=== PATIENT | female | born 1945 | race Caucasian/White ===

== ENCOUNTER → 2016-05-20 | Outpatient (RCR) ==
--- NOTE | 2016-05-20 11:32 | RS.OPPTEV2 ---
Date of Note: 05/20/16 Visit #: 1 Date of Evaluation: 05/20/16 Payer Source: MEDICARE Date of Onset/Injury/Change in Status: 01/19/16 Procedure Performed: Kyphoplasty Date of Procedure: 03/12/16 (2nd kyphopasty was in March but date unknown) Treatment Diagnosis: Thoracic back pain History of Condition/Mechanism of Injury:: Patient has had thoracic compression fxs which she had 2 kyphoplasty surgeries one in February and the 2nd in March. The 1st surgery was very helpful and the 2nd was not as successful. She is unsure of how these fxs occurred but states that her bones are very brittle. She was given no precautions. She does have hx of lung Ca which is in remission after chemo and radiation. Prior Level of Function.....Patient was independent with: ADL's, Self Care, Work /Vocation, Caregiving, Ambulation/Mobility, Community Integration/Access Functional Limitations: Reaching, Pushing, Pulling, Lifting, Carrying, Bending, Community Access/Integration Current Subjective/complaints:: Patient states she has no pain when she is still but when she moves the pain becomes so severe it takes her breath away. If she lays down it will go away within an hour. She is also going through a great deal of emotional difficulty with the of her significant other in February which she cared for for 5 yrs and the loss of several family members from a plane crash ~ a yr ago. Patient was tearful today when discussing this during evaluation. Treatment Side (optional): Left Medical History Medical History: Hypertension, COPD, Arthritis, Cancer Medical History Comments:: Irregular cardiac rhythm, lung Ca Surgical History: Thoracic Spine, Hysterectomy Smoking Status: Former smoker Pain Assessment - Pain Description Pain Location: Upper thoracic pain Pain Description: Burning, Sharp Pain Description: Pain is only with movement Current Pain Intensity: 0/10 Worst Pain Intensity: takes her breath away Functional Outcome Measure Oswestry LBP: 22 (44% diability) - G Codes & Severity Modifier G Codes & Modifier: Changing, & Maintaining Body Position. Eval: CK. Goal: CJ Source of G Code score: Oswestry Observation - Observation Posture: Forward Head, Rounded Shoulders, Increased Thoracic Kyphosis General Muscle Strength: Due to pain with movement no MMT was performed but she was able to move UEs through full ROM w/o difficulty. Postural weakness was evident by postural deficits. Shoulder ROM: Bilaterally WFL's Palpation Palpation Findings: Tenderness, Trigger Point (Left thoracic intercostal area upper to mid thoracic area.) Sensation - Sensation Sensation Description: Within Normal Limits Interventions - Exercise/Activities/Manual Therapy Exercises/Activities: scapular pinches and shoulder shrugs 2 sets 5 reps for postural correction. Increased pain with improved posture. Total minutes of Exercise: 5 Manual Therapy: Myofascial and tender point release of right mid thoracic paraspinals. Total minutes of Manual Therapy: 20 HOME EXERCISE PROGRAM: See above exercises. - Charges Total Direct Minutes: 25 Total Treatment Time: 60 Procedures billed for this date of service:: PT Duarte (Medium) & manual therapy Assessment Assessment: Debilitating thoracic pain that limits all functional activities. Patient Education: Education of diagnosis, Body/Joint mechanics, Home Exercise Program, Home Safety, Activity Modification, Education of Plan of Care Rehab Potential: Good Short Term Goals Goal #1: Thoracic pain at worst has decreased to moderate. Goal to be met by: 06/06/16 Goal #2: Patient tolerates minimal upper body activity with min increase in pain Goal to be met by: 06/06/16 Goal #3: Independent with basic HEP. Goal to be met by: 06/06/16 Heel Trimmer Goals Goal #1: Only minimal c/o thoracic pain at worst. Goal to be met by: 06/27/16 Goal #2: Oswestry score decreased to 12. Goal to be met by: 06/27/16 Goal #3: Independent in HEP to maintain DC status. Goal to be met by: 06/27/16 Plan - Treatment to be Provided Procedures: Therapeutic Exercises, Therapeutic Activity, Manual Therapy, Massage , Patient Education Modalities: Cryotherapy, Hot Packs - Treatment Plan Frequency: 2 - 3 X/week Duration: 6 weeks ORDER # VISITS AND/OR THROUGH DATE: 06/27/2016 - Treatment Code (1) Thoracic back pain Qualifiers: Chronicity: acute Back pain laterality: left Qualified Description : Acute left-sided thoracic back pain Qualifier Code(s): (M54.6) Pain in thoracic spine
== END ==
PROVIDERS: ATTEND Nurse Practitioner
DX: M54.6 Pain in thoracic spine (principal)

== ENCOUNTER 2016-06-13 09:15 | Outpatient (RCR) ==
--- NOTE | 2016-05-22 10:39 | RS.OPPTDN ---
Subjective Date of Note: 05/22/16 Visit #: 2 Date of Evaluation: 05/20/16 Payer Source: MEDICARE Treatment Diagnosis: Thoracic back pain Current Subjective/complaints:: Patient reports she was already better after the evaluation and manual therapy performed on the 1st visit. She was able to stand and finishing cooking where she had not been able to prior to tx due to severe sharp thoracic pain. Pain Assessment - Pain Description Pain Location: Upper thoracic pain Pain Description: Pain is only with movement Current Pain Intensity: 0/10 Interventions - Exercise/Activities/Manual Therapy Exercises/Activities: scapular pinches and shoulder shrugs 2 sets 7 reps for postural correction. Increased pain with improved posture. She report compliance with performance of these since last visit. She requires min-mod assist for proper technique. Manual Therapy: Myofascial mobilization and stretching as well as trigger/ tennder point release techniques of the left mid thoracic paraspinals. Left scapular moblizatoin also performed for thoracoscapular moblitiy and to facilitate normal shoulder and thoracic relationship of movement. No pain with this technique. HOME EXERCISE PROGRAM: See above exercises. - Charges Total Direct Minutes: 45 Total Treatment Time: 45 Procedures billed for this date of service:: manual therapy X 2 & ther ex Assessment: Decreased left thoracic pain with patient tolerating today's treatment well also. Patient Education: Home Exercise Program, Activity Modification (Patient instructed to continue to avoid splitting and chopping wood which is an activity she loved and did regularly prior to compress fxs. She verbalized understanding and compliance.) Short Term Goals Goal #1: Thoracic pain at worst has decreased to moderate. Goal to be met by: 06/06/16 Goal #2: Patient tolerates minimal upper body activity with min increase in pain Goal to be met by: 06/06/16 Goal #3: Independent with basic HEP. Goal to be met by: 06/06/16 Prison Goals Goal #1: Only minimal c/o thoracic pain at worst. Goal to be met by: 06/27/16 Goal #2: Oswestry score decreased to 12. Goal to be met by: 06/27/16 Goal #3: Independent in HEP to maintain DC status. Goal to be met by: 06/27/16 Plan PLAN OF CARE EXPIRES ON:: 06/27/16 ORDER # VISITS AND/OR THROUGH DATE: 06/27/2016 PLAN: Continue Plan of Care
--- NOTE | 2016-05-26 09:39 | RS.OPPTDN ---
Subjective Date of Note: 05/26/16 Visit #: 3 Date of Evaluation: 05/20/16 Payer Source: MEDICARE Treatment Diagnosis: Thoracic back pain Current Subjective/complaints:: Patient states that she has felt better after her last appointment, but she had to do a lot of "running around" over the weekend and has had increased pain. Says she has pain to the L mid back more than R. She says she uses heat at home for pain relief, but denies wanting any today. She requests to exercise only. Pain Assessment - Pain Description Pain Location: Upper thoracic pain Pain Description: Pain is only with movement Current Pain Intensity: "more today" Interventions - Exercise/Activities/Manual Therapy Exercises/Activities: Patient receives passive stretching: SKTC, Piriformis, Trunk rotation, HS bilaterally x 3. Patient attempts pelvic tilts, bridging x 5 , alternate LE lift, alternate LE/UE lift with 1# wand x 10. Sitting: scap adduction, shoulder shrugs x 10. Standing: wall angels, bilateral shoulder flexion with 1# wand with assistance for proper shoulder girdle motion, education on diagnosis, posture. Total minutes of Exercise: 27 Manual Therapy: Trigger point release to the L mid scapula prior and after therex. Total minutes of Manual Therapy: 6 HOME EXERCISE PROGRAM: See above exercises. - Charges Total Direct Minutes: 33 Total Treatment Time: 33 Procedures billed for this date of service:: ex2 Assessment: Patient with elevated pain today to L mid to low back compared to R. Patient experienced mild relief with treatment today. She had difficulty performing pelvic tilts and does show poor mechanics and needed assistance/cues for proper thoracic/scapular exercises. Patient Education: Education of diagnosis, Body/Joint mechanics, Home Exercise Program, Home Safety, Activity Modification, Education of Plan of Care Short Term Goals Goal #1: Thoracic pain at worst has decreased to moderate. Goal to be met by: 06/06/16 Progress towards Goal:: Progressing Goal #2: Patient tolerates minimal upper body activity with min increase in pain Goal to be met by: 06/06/16 Progress towards Goal:: Progressing Goal #3: Independent with basic HEP. Goal to be met by: 06/06/16 Provider Scribe Goals Goal #1: Only minimal c/o thoracic pain at worst. Goal to be met by: 06/27/16 Goal #2: Oswestry score decreased to 12. Goal to be met by: 06/27/16 Goal #3: Independent in HEP to maintain DC status. Goal to be met by: 06/27/16 Plan PLAN OF CARE EXPIRES ON:: 06/27/16 ORDER # VISITS AND/OR THROUGH DATE: 06/27/2016 PLAN: Progress Exercises
--- NOTE | 2016-05-29 10:00 | RS.OPPTDN ---
Subjective Date of Note: 05/29/16 Visit #: 4 Date of Evaluation: 05/20/16 Payer Source: MEDICARE Treatment Diagnosis: Thoracic back pain Current Subjective/complaints:: Patient reports manual therapy to the left shoulder blade area seems to help more than anything. Reports discomfort into left upper traps during and after exercises today in department. Reports the position required for washing dishes or cooking increases her pain. Pain Assessment - Pain Description Pain Location: Upper thoracic pain Pain Description: Pain is only with movement Current Pain Intensity: about the same, no increased pain Interventions - Exercise/Activities/Manual Therapy Exercises/Activities: Sitting: scap adduction, shoulder shrugs x 10. Standing : attempted wall angels, but patient reporting pain with attempts to get into position,yellow theraband for scapular retraction, punching forward with left using yellow theraband, serratus anterior isometrics on the left UE, and active left shoulder protraction with assistance. Patient given yellow theraband for scapular retraction for sparkle. Total minutes of Exercise: 16 mins Manual Therapy: Trigger point release to the L mid scapula prior to exercises. Easily able to locate trigger points along the medial border of the scapula. following exercise, manual therapy to left upper traps finds trigger point along the superior border of the scapula with moderate increased muscle tone. Total minutes of Manual Therapy: X 18 mins HOME EXERCISE PROGRAM: See above exercises. yellow band for scapula retraction - Charges Total Direct Minutes: 34 mins Total Treatment Time: 34 mins Procedures billed for this date of service:: Manual therapy, Ex Assessment: Patient tolerates manual therapy very well. She reports significant tenderness during, but reports that it helps more than anything. She is receptive to adding the resisted scapular retraction to HEP. Patient Education: Education of diagnosis Short Term Goals Goal #1: Thoracic pain at worst has decreased to moderate. Goal to be met by: 06/06/16 Progress towards Goal:: Progressing Goal #2: Patient tolerates minimal upper body activity with min increase in pain Goal to be met by: 06/06/16 Progress towards Goal:: Progressing Goal #3: Independent with basic HEP. Goal to be met by: 06/06/16 Progress towards Goal:: Progressing Road Equipment Operator Goals Goal #1: Only minimal c/o thoracic pain at worst. Goal to be met by: 06/27/16 Goal #2: Oswestry score decreased to 12. Goal to be met by: 06/27/16 Goal #3: Independent in HEP to maintain DC status. Goal to be met by: 06/27/16 Plan PLAN OF CARE EXPIRES ON:: 06/27/16 ORDER # VISITS AND/OR THROUGH DATE: 06/27/2016 PLAN: Continue Plan of Care
--- NOTE | 2016-05-30 09:40 | RS.OPPTDN ---
Subjective Date of Note: 05/30/16 Visit #: 5 Date of Evaluation: 05/20/16 Payer Source: MEDICARE Treatment Diagnosis: Thoracic back pain Current Subjective/complaints:: Patient says the manual therapy helped her yesterday. She says she remains tight to the L mid back. She denies any increase in soreness related to the exercises. She says right now she is battling COPD flare up. Pain Assessment - Pain Description Pain Location: Upper thoracic pain Pain Description: Pain is only with movement Current Pain Intensity: about the same, no increased pain Interventions - Exercise/Activities/Manual Therapy Exercises/Activities: Sitting: scap adduction, shoulder shrugs x 10. Standing : verbal cues for erect posture at the wall, shoulder shrugs, 1# wand for bilateral shoulder flexion to approx 90 degrees, yellow tband for bilateral horizontal abd, punches forward with left using yellow theraband, shoulder extension with yellow tband, serratus anterior isometrics on the left UE, and active left shoulder protraction with assistance. Total minutes of Exercise: 25 Manual Therapy: Trigger point release to the L mid scapula prior to exercises. Easily able to locate trigger points along the medial border of the scapula. following exercise, manual therapy to left upper traps finds trigger point along the superior border of the scapula with moderate increased muscle tone. Total minutes of Manual Therapy: 13 HOME EXERCISE PROGRAM: See above exercises. yellow band for scapula retraction, bilateral shoulder horizontal abd and bilateral shoulder ER - Charges Total Direct Minutes: 38 Total Treatment Time: 38 Procedures billed for this date of service:: MT, ex2 Assessment: Patient finding relief with current MT and therex, but only temporary at this point. She continues to demo several trigger points throughout the L mid to back. No issues to the R side. Patient Education: Education of diagnosis, Body/Joint mechanics, Home Exercise Program, Home Safety, Activity Modification, Education of Plan of Care Patient demonstrates compliance with HEP?: Yes Short Term Goals Goal #1: Thoracic pain at worst has decreased to moderate. Goal to be met by: 06/06/16 Progress towards Goal:: Progressing Goal #2: Patient tolerates minimal upper body activity with min increase in pain Goal to be met by: 06/06/16 Progress towards Goal:: Progressing Goal #3: Independent with basic HEP. Goal to be met by: 06/06/16 Progress towards Goal:: Progressing Trim Installer Goals Goal #1: Only minimal c/o thoracic pain at worst. Goal to be met by: 06/27/16 Goal #2: Oswestry score decreased to 12. Goal to be met by: 06/27/16 Goal #3: Independent in HEP to maintain DC status. Goal to be met by: 06/27/16 Plan PLAN OF CARE EXPIRES ON:: 06/27/16 ORDER # VISITS AND/OR THROUGH DATE: 06/27/2016 PLAN: Progress Exercises
--- NOTE | 2016-06-04 10:04 | RS.OPPTDN ---
Subjective Date of Note: 06/04/16 Visit #: 7 Date of Evaluation: 05/20/16 Payer Source: MEDICARE Treatment Diagnosis: Thoracic back pain Current Subjective/complaints:: Patient says she is feeling much better. Reports only slight LBP. Pain Assessment - Pain Description Pain Location: Upper thoracic pain Pain Description: Pain is only with movement Current Pain Intensity: about the same, no increased pain Interventions - Exercise/Activities/Manual Therapy Exercises/Activities: Sitting: scap adduction, shoulder shrugs x 10. Standing : shoulder shrugs, 1# wand for bilateral shoulder flexion to approx 100 degrees, yellow tband for bilateral horizontal abd, punches forward with left using yellow theraband, shoulder extension with yellow tband, bilateral shoulder ext with yellow tband, serratus anterior isometrics on the left UE, and active left shoulder protraction with assistance. Bilateral shoulder ER with yellow tband 2/10. Total minutes of Exercise: 27 Manual Therapy: Trigger point release to the L mid scapula prior to exercises. Trigger points along the medial border of the scapula are smaller and less sensitive. Manual therapy to left upper traps finds trigger point along the superior border of the scapula with now mild increased muscle tone. Total minutes of Manual Therapy: 16 HOME EXERCISE PROGRAM: See above exercises. yellow band for scapula retraction, bilateral shoulder horizontal abd and bilateral shoulder ER - Charges Total Direct Minutes: 43 Total Treatment Time: 43 Procedures billed for this date of service:: MT, saida2 Assessment: Patient demonstrates improved pain level, admitting she can now sleep without disturbances related to upper back, and wash dishes without pain she had previously. Decreased tenderness and size of trigger points to the L mid thoracic and UT. Patient Education: Education of diagnosis, Body/Joint mechanics, Home Exercise Program, Home Safety, Activity Modification, Education of Plan of Care Patient demonstrates compliance with HEP?: Yes Short Term Goals Goal #1: Thoracic pain at worst has decreased to moderate. Goal to be met by: 06/06/16 Progress towards Goal:: Met Goal #2: Patient tolerates minimal upper body activity with min increase in pain Goal to be met by: 06/06/16 Progress towards Goal:: Met Goal #3: Independent with basic HEP. Goal to be met by: 06/06/16 Progress towards Goal:: Met Detention Goals Goal #1: Only minimal c/o thoracic pain at worst. Goal to be met by: 06/27/16 Progress towards goal: Progressing Goal #2: Oswestry score decreased to 12. Goal to be met by: 06/27/16 Goal #3: Independent in HEP to maintain DC status. Goal to be met by: 06/27/16 Plan PLAN OF CARE EXPIRES ON:: 06/27/16 ORDER # VISITS AND/OR THROUGH DATE: 06/27/2016 PLAN: Continue Plan of Care
--- NOTE | 2016-06-06 10:26 | RS.OPPTDN ---
Subjective Date of Note: 06/06/16 Visit #: 8 Date of Evaluation: 05/20/16 Payer Source: MEDICARE Treatment Diagnosis: Thoracic back pain Current Subjective/complaints:: Patient says her pain is much better. She says she is able to tell the exercises are making her stronger too. Pain Assessment - Pain Description Pain Location: Upper thoracic pain Pain Description: Pain is only with movement Current Pain Intensity: about the same, no increased pain Interventions - Exercise/Activities/Manual Therapy Exercises/Activities: Sitting: scap adduction, shoulder shrugs x 10. Standing : shoulder shrugs, 1# wand for bilateral shoulder flexion to approx 100 degrees, progressed to red tband for bilateral horizontal abd, punches forward with left using yellow theraband, shoulder extension progressed to red tband, bilateral shoulder ext with red tband, serratus anterior isometrics on the left UE, and active left shoulder protraction with assistance. Bilateral shoulder ER with red tband 2/10. Wall slides x 10. Total minutes of Exercise: 25 Manual Therapy: Trigger point release to the L mid scapula prior to exercises. Trigger points along the medial border of the scapula are smaller and less sensitive. Manual therapy to left upper traps finds trigger point along the superior border of the scapula with now mild increased muscle tone. Total minutes of Manual Therapy: 15 HOME EXERCISE PROGRAM: See above exercises. yellow band for scapula retraction, bilateral shoulder horizontal abd and bilateral shoulder ER - Charges Total Direct Minutes: 40 Total Treatment Time: 40 Procedures billed for this date of service:: MT, laura Assessment: Patient improving with upper back pain and decreased trigger points/ muscle guarding. Patient Education: Education of diagnosis, Body/Joint mechanics, Home Exercise Program, Home Safety, Activity Modification, Education of Plan of Care Patient demonstrates compliance with HEP?: Yes Short Term Goals Goal #1: Thoracic pain at worst has decreased to moderate. Goal to be met by: 06/06/16 Progress towards Goal:: Met Goal #2: Patient tolerates minimal upper body activity with min increase in pain Goal to be met by: 06/06/16 Progress towards Goal:: Met Goal #3: Independent with basic HEP. Goal to be met by: 06/06/16 Progress towards Goal:: Met Ceramic Tiler Goals Goal #1: Only minimal c/o thoracic pain at worst. Goal to be met by: 06/27/16 Progress towards goal: Progressing Goal #2: Oswestry score decreased to 12. Goal to be met by: 06/27/16 Goal #3: Independent in HEP to maintain DC status. Goal to be met by: 06/27/16 Plan PLAN OF CARE EXPIRES ON:: 06/27/16 ORDER # VISITS AND/OR THROUGH DATE: 06/27/2016 PLAN: Continue Plan of Care
--- NOTE | 2016-06-12 15:12 | RS.OPPTDN ---
Subjective Date of Note: 06/02/16 Visit #: 6 Date of Evaluation: 05/20/16 Payer Source: MEDICARE Treatment Diagnosis: Thoracic back pain Current Subjective/complaints:: Patient has no c/o's. She says she is doing better. She reports having less tightness. Pain Assessment - Pain Description Pain Location: Upper thoracic pain Pain Description: Pain is only with movement Current Pain Intensity: decreased pain Interventions - Exercise/Activities/Manual Therapy Exercises/Activities: Sitting: scap adduction, shoulder shrugs x 10. Standing : verbal cues for erect posture at the wall, shoulder shrugs, 1# wand for bilateral shoulder flexion to approx 90 degrees, yellow tband for bilateral horizontal abd, punches forward with left using yellow theraband, shoulder extension with yellow tband, serratus anterior isometrics on the left UE, and active left shoulder protraction with assistance. Total minutes of Exercise: 30 Manual Therapy: Trigger point release to the L mid scapula prior to exercises. Easily able to locate trigger points along the medial border of the scapula. following exercise, manual therapy to left upper traps finds trigger point along the superior border of the scapula with moderate increased muscle tone. Total minutes of Manual Therapy: 15 HOME EXERCISE PROGRAM: See above exercises. yellow band for scapula retraction, bilateral shoulder horizontal abd and bilateral shoulder ER - Charges Total Direct Minutes: 45 Total Treatment Time: 45 Procedures billed for this date of service:: laura COTTON Assessment: Patient's L mid thoracic area demo less muscle guarding and trigger points. Patient cole therex well. Patient Education: Education of diagnosis, Body/Joint mechanics, Home Exercise Program, Home Safety, Activity Modification, Education of Plan of Care Patient demonstrates compliance with HEP?: Yes Short Term Goals Goal #1: Thoracic pain at worst has decreased to moderate. Goal to be met by: 06/06/16 Progress towards Goal:: Met Goal #2: Patient tolerates minimal upper body activity with min increase in pain Goal to be met by: 06/06/16 Progress towards Goal:: Progressing Goal #3: Independent with basic HEP. Goal to be met by: 06/06/16 Progress towards Goal:: Progressing Ball Thread Machine Tender Goals Goal #1: Only minimal c/o thoracic pain at worst. Goal to be met by: 06/27/16 Progress towards goal: Progressing Goal #2: Oswestry score decreased to 12. Goal to be met by: 06/27/16 Goal #3: Independent in HEP to maintain DC status. Goal to be met by: 06/27/16 Plan PLAN OF CARE EXPIRES ON:: 06/27/16 ORDER # VISITS AND/OR THROUGH DATE: 06/27/2016 PLAN: Continue Plan of Care
--- NOTE | 2016-06-13 13:39 | RS.OPPTDN ---
Subjective Date of Note: 06/13/16 Visit #: 9 Date of Evaluation: 05/20/16 Payer Source: MEDICARE Treatment Diagnosis: Thoracic back pain Current Subjective/complaints:: Patient reports no pain. Says she is doing well with all therex. Pain Assessment - Pain Description Pain Location: Upper thoracic pain Pain Description: Pain is only with movement Current Pain Intensity: none Interventions - Exercise/Activities/Manual Therapy Exercises/Activities: Supine: 2# wand for bilateral shoulder flexion and press ups 2x10. Red tband for shoulder pull downs bilaterally 2x10, bilateral shoulder ER and alternate LE lift (2 1/2# each ankle) and 2# wand 2x10. Bridging 2/10. Red tband for horizontal abd 2x10. Sitting: scap adduction, shoulder shrugs x 10. 2# wand for bilateral shoulder flexion, red tband scap retraction, Standing: verbal cues for erect posture at the wall, shoulder shrugs, 1# wand for bilateral shoulder flexion to approx 90 degrees against the wall, wall slides 2x10, Total minutes of Exercise: 30 Manual Therapy: na HOME EXERCISE PROGRAM: See above exercises. yellow band for scapula retraction, bilateral shoulder horizontal abd and bilateral shoulder ER - Objective Findings Observations,measurements,etc.: Improved Oswestry from 44% impairment to 26% now. Score is 13 - Charges Total Direct Minutes: 30 Total Treatment Time: 30 Procedures billed for this date of service:: ex2 Assessment: Patient has improved with pain level and function. 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 Patient Education: Education of diagnosis, Body/Joint mechanics, Home Exercise Program, Home Safety, Activity Modification, Education of Plan of Care Patient demonstrates compliance with HEP?: Yes Short Term Goals Goal #1: Thoracic pain at worst has decreased to moderate. Goal to be met by: 06/06/16 Progress towards Goal:: Met Goal #2: Patient tolerates minimal upper body activity with min increase in pain Goal to be met by: 06/06/16 Progress towards Goal:: Met Goal #3: Independent with basic HEP. Goal to be met by: 06/06/16 Progress towards Goal:: Met Goal Umpire Goals Goal #1: Only minimal c/o thoracic pain at worst. Goal to be met by: 06/27/16 Progress towards goal: Progressing Goal #2: Oswestry score decreased to 12. Goal to be met by: 06/27/16 Progress towards goal: Progressing Comments: 13 Goal #3: Independent in HEP to maintain DC status. Goal to be met by: 06/27/16 Progress towards goal: Met Plan PLAN OF CARE EXPIRES ON:: 06/27/16 ORDER # VISITS AND/OR THROUGH DATE: 06/27/2016 PLAN: Plan for Discharge
--- NOTE | 2016-06-26 14:02 | RS.OPPTDN ---
Subjective Date of Note: 06/12/16 Visit #: 8 Date of Evaluation: 05/20/16 Payer Source: MEDICARE Treatment Diagnosis: Thoracic back pain Current Subjective/complaints:: Patient admits she has felt better and does not have any pain today except if she is in a "certain" position. (She is vague about describing factors that reproduce her pain) Pain Assessment - Pain Description Pain Location: Upper thoracic pain Pain Description: Pain is only with movement Current Pain Intensity: none Interventions - Exercise/Activities/Manual Therapy Exercises/Activities: Supine: 2# wand for bilateral shoulder flexion and press ups 2x10. Red tband for shoulder pull downs bilaterally 2x10, bilateral shoulder ER and alternate LE lift (2 1/2# each ankle) and 2# wand 2x10. Bridging 2/10. Red tband for horizontal abd 2x10. Sitting: scap adduction, shoulder shrugs x 10. 2# wand for bilateral shoulder flexion, red tband scap retraction, Standing: verbal cues for erect posture at the wall, shoulder shrugs, 1# wand for bilateral shoulder flexion to approx 90 degrees against the wall, wall slides 2x10, Patient completes FES. Total minutes of Exercise: 35 Manual Therapy: na HOME EXERCISE PROGRAM: See above exercises. yellow band for scapula retraction, bilateral shoulder horizontal abd and bilateral shoulder ER - Charges Total Direct Minutes: 35 Total Treatment Time: 35 Procedures billed for this date of service:: ex2 Assessment: Scored 13 or 26% impairment. No longer limited by pain for ADLs. Decreased tightness and improved awareness for posture. Patient Education: Education of diagnosis, Body/Joint mechanics, Home Exercise Program, Home Safety, Activity Modification, Education of Plan of Care Patient demonstrates compliance with HEP?: Yes Short Term Goals Goal #1: Thoracic pain at worst has decreased to moderate. Goal to be met by: 06/06/16 Progress towards Goal:: Met Goal #2: Patient tolerates minimal upper body activity with min increase in pain Goal to be met by: 06/06/16 Progress towards Goal:: Met Goal #3: Independent with basic HEP. Goal to be met by: 06/06/16 Progress towards Goal:: Met Fpc Goals Goal #1: Only minimal c/o thoracic pain at worst. Goal to be met by: 06/27/16 Progress towards goal: Progressing Goal #2: Oswestry score decreased to 12. Goal to be met by: 06/27/16 Progress towards goal: Progressing Goal #3: Independent in HEP to maintain DC status. Goal to be met by: 06/27/16 Progress towards goal: Met Plan PLAN OF CARE EXPIRES ON:: 06/27/16 ORDER # VISITS AND/OR THROUGH DATE: 06/27/2016 PLAN: Plan for Discharge
== END 2016-06-17 ==
PROVIDERS: ATTEND Nurse Practitioner
DX: M54.6 Pain in thoracic spine (principal)

== ENCOUNTER 2017-06-05 11:37 | Outpatient (CLI) ==
--- NOTE | 2017-06-05 13:47 | DI ---
EXAM: CHEST FRONTAL AND LATERAL VIEWS HISTORY: Acute bronchitis, history of right-sided lung cancer. COMPARISON: 01/21/2016 FINDINGS: Heart size is upper limit normal and stable. At least moderate atherosclerotic disease. Left-sided port catheter stable ending at the superior aspect of the superior vena cava. There is a linear band of density across the upper right lung which appears similar or slightly thickened compar ed to prior study likely related to postop scarring given the patient's history of right-sided lung c ancer. Adjacent mild pleural thickening which is also more noticeable. No definite consolidated pne umonia is seen. There is no vascular congestion, pneumothorax or pleural fluid. There has been vert ebral plasty of two mid thoracic vertebral bodies since previous exam. One which had deformity previ ously and appears grossly stable. The other deformity has been developed since previous although is now treated. Another non treated wedge-shaped vertebral body deformity just below this is present an d stable. IMPRESSION: 1. Probable postop scarring in the right lung. No definite consolidated pneumonia. Managing the pa tient on a clinical basis is recommended.
== END 2017-06-05 11:38 | disposition home or self-care (01) ==
LOC: RAD 11:37
PROVIDERS: ATTEND Nurse Practitioner
DX: J20.9 Acute bronchitis, unspecified (principal)

== ENCOUNTER 2017-12-15 10:47 | Outpatient (CLI) | payer OTHER | END 2017-12-15 10:48 | disposition home or self-care (01) | LOC: LAB 10:47 | PROVIDERS: ATTEND Nurse Practitioner | DX: N18.3 Chronic kidney disease, stage 3 (moderate) (principal); E55.9 Vitamin D deficiency, unspecified | CPT/HCPCS: 36415; 80053; 81001; 82306; 82570; 83735; 83970; 84100; 84156; 84550; 85027 ==

== ENCOUNTER 2018-02-15 10:51 | Outpatient (CLI) | payer OTHER | END 2018-02-15 10:52 | disposition home or self-care (01) | LOC: LAB 10:51 | PROVIDERS: ATTEND Nurse Practitioner | DX: N18.3 Chronic kidney disease, stage 3 (moderate) (principal) | CPT/HCPCS: 36415; 80053; 81001; 82570; 83735; 84100; 84156; 84550; 85027 ==

== ENCOUNTER 2018-02-26 09:47 | Outpatient (CLI) | payer OTHER | END 2018-02-26 09:48 | disposition home or self-care (01) | LOC: LAB 09:47 | PROVIDERS: ATTEND Nurse Practitioner | DX: N18.3 Chronic kidney disease, stage 3 (moderate) (principal) | CPT/HCPCS: 36415; 80069; 81001; 82570; 84156; 84300 ==

== ENCOUNTER 2018-05-18 11:03 | Outpatient (CLI) | END 2018-05-18 11:04 | disposition home or self-care (01) | LOC: LAB 11:03 | PROVIDERS: ATTEND Nurse Practitioner | DX: N18.3 Chronic kidney disease, stage 3 (moderate) (principal); E55.9 Vitamin D deficiency, unspecified | CPT/HCPCS: 36415; 80053; 81001; 82306; 82570; 83735; 83970; 84100; 84156; 84550; 85027 ==

== ENCOUNTER 2018-07-26 12:35 | Outpatient (CLI) | payer OTHER ==
--- NOTE | 2018-07-26 13:35 | DI ---
EXAM: Two views of the chest. History: Chest trauma and right rib pain. Comparison: Chest radiograph 06/05/2017 Findings: Heart size is stable. Persistent but improving right perihilar infiltrate and scarring. No developing opacities. No appreciable pleural fluid and no pneumothorax. Calcified granulomas are again seen. Left central line seen in place. Atherosclerotic vascular calcifications. Kyphoplasti es again seen within the thoracic spine. Impression: Persistent but improving right perihilar consolidation and scarring. No new acute findi ngs.
--- NOTE | 2018-07-26 14:06 | DI ---
EXAM: RIGHT RIBS HISTORY: Fall, right rib pain FINDINGS: Right ribs four view. There is a mildly displaced acute rib fracture situated laterally a t what is thought to represent T8 level. Questionable mild deformities of the posteriolateral fifth and sixth ribs are indeterminate. There is no pleural fluid or pneumothorax IMPRESSION: 1. There is at least one right-sided rib fracture as described.
== END 2018-07-26 12:36 | disposition home or self-care (01) ==
LOC: RAD 12:35
PROVIDERS: ATTEND Nurse Practitioner
DX: R07.89 Other chest pain (principal); R05 Cough; Z79.899 Other long term (current) drug therapy

== ENCOUNTER 2018-07-28 10:54 | Emergency (ER) ==
[2018-07-28 11:01] VITALS: BP 145/84; TEMP 99.5; BMI 26.9
--- NOTE | 2018-07-28 11:12 | ED.PDOC ---
General ED Provider: Dr. SUNSHINE NESBITT Chief Complaint: Laceration Stated Complaint: skin tear left arm Time Seen by Physician: 11:00 (seen with may at all times photos submitted ) Mode of Arrival: Walk-In Information Source: Patient, Family Exam Limitations: No limitations Nursing and Triage Documentation Reviewed and Agree: Yes Does patient meet sepsis criteria?: No If yes, has appropriate treatment been initiated?: No System Inflammatory Response Syndrome: Not Applicable Sepsis Protocol: For patient's 13 years and over: Temp is 96.8 and below OR 101 and greater Pulse >90 BPM Resp >20/minute Acutely Altered Mental Status Are patient's symptoms suggestive of a new infection, such as: -Pneumonia -Skin, Soft Tissue -Endocarditis -UTI -Bone, Joint Infection -Implantable Device -Acute Abdominal Infection -Wound Infection -Meningitis -Blood Stream Catheter Infection -Unknown Skin Complaint Exam - Lac/Torso/Upper Ext. Complaint/Exam Location of Injury: Left, Arm Mechanism of Injury: Blunt trauma (rolled over the arm in bed skin streched no fall reported and may present) Onset/Duration: 1hr Symptoms Are: Still present Initial Severity: Mild Current Severity: Mild Aggravating: Movement Alleviating: Compression Associated Signs and Symptoms: Denies: Fever, Chills, Erythema, Numbness, Tingling Differential Diagnoses: Laceration Review of Systems - Review Of Systems Constitutional: Reports: No symptoms Eyes: Reports: No symptoms Ears, Nose, Mouth, Throat: Reports: No symptoms Respiratory: Reports: No symptoms Cardiac: Reports: No symptoms GI: Reports: No symptoms : Reports: No symptoms Musculoskeletal: Reports: No symptoms Skin: Reports: Other (skin tear left arm ) Neurological: Reports: No symptoms Endocrine: Reports: No symptoms Hematologic/Lymphatic: Reports: No symptoms All Other Systems: Reviewed and Negative Past Medical History - Past Medical History Previously Healthy: Yes Endocrine: Reports: None Cardiovascular: Reports: Hypertension Respiratory: Reports: COPD Hematological: Reports: None Gastrointestinal: Reports: None Genitourinary: Reports: None Neuro/Psych: Reports: None Musculoskeletal: Reports: None Cancer: Reports: None Last Menstrual Period: menopause - Surgical History General Surgical History: Reports: None - Family History Family History: Reports: None - Social History Smoking Status: Former smoker Hx Substance Use: No Alcohol Screening: None - Immunizations Tetanus Shot up to Date: No Physical Exam - Physical Exam Appearance: Well-appearing, No pain distress, Well-nourished Eyes: MANDO, EOMI, Conjunctiva clear ENT: Ears normal, Nose normal, Oropharynx normal Respiratory: Airway patent, Breath sounds clear, Breath sounds equal, Respirations nonlabored Cardiovascular: RRR, Pulses normal, No rub, No murmur GI/: Soft, Nontender, No masses, Bowel sounds normal, No Organomegaly Musculoskeletal: Normal strength, ROM intact, No edema, No calf tenderness Skin: Warm, Dry (skin tear see photos) Neurological: Sensation intact, Motor intact, Reflexes intact, Cranial nerves intact, Alert, Oriented Psychiatric: Affect appropriate, Mood appropriate Procedures - Laceration/Wound Repair No standard instances Wound Description: Irregular Wound Length (cm): 7cm Wound Width: 4mm Wound Depth: 1mm Wound Explored: Clean Wound Irrigated: No Wound Prep: Saline, Hibiclens Wound Debrided: Minimal Undermining: Moderate Wound Margins: Revised, Vermilion border aligned Wound Repaired With: Steri-strips Suture Size and Type: n/a Layer Closure?: No Sterile Dressing Applied?: Yes Splint Applied?: No Sling Applied?: No Critical Care Note - Critical Care Note Total Time (mins): 0 Course - Course Vital Signs: Temp Pulse Resp BP Pulse Ox 07/28/18 10:55 99.5 F 94 H 20 145/84 H 94 L Departure - Departure Time of Disposition: 11:40 Disposition: HOME SELF-CARE Discharge Problem: Laceration - injury, Skin tear Instructions: Skin Tear (ED) Condition: Good Pt referred to PMD for follow-up: Yes IPMP verified?: No Additional Instructions: Please call your Family Physician as soon as possible to schedule a follow-up appointment. Allergies/Adverse Reactions: Allergies No Known Allergies Allergy (Verified 07/28/18 11:02) Home Medications: Ambulatory Orders Alprazolam 0.25 mg PO DAILY 05/03/13 Aspirin [Damian Chewable] 81 mg PO DAILY 05/03/13 Escitalopram Oxalate 10 mg PO DAILY 05/03/13 Ferrous Sulfate [Iron] 325 mg PO DAILY 05/03/13 Hydrocodone/Acetaminophen [Hydrocodon-Acetaminoph 7.5-325] 1 each PO PRN PRN Lisinopril 10 mg PO DAILY 05/03/13 Metoprolol Tartrate [Lopressor] 25 mg PO DAILY 05/03/13 Omeprazole [Prilosec] 20 mg PO DAILY 05/03/13 Vitamin E 1,000 unit PO DAILY 05/03/13 Disposition Discussed With: Patient, Family
== END 2018-07-28 11:50 | disposition home or self-care (01) ==
LOC: ED 10:54
DX: S41.112A Laceration without foreign body of left upper arm, initial encounter (principal)
CPT/HCPCS: 99283

== ENCOUNTER 2018-08-17 13:26 | Outpatient (CLI) | END 2018-08-17 13:27 | disposition home or self-care (01) | LOC: LAB 13:26 | PROVIDERS: ATTEND Nurse Practitioner | DX: E55.9 Vitamin D deficiency, unspecified (principal); N18.3 Chronic kidney disease, stage 3 (moderate) | CPT/HCPCS: 36415; 80053; 81001; 82306; 82570; 83735; 83970; 84100; 84550; 85025; 87086 ==